=== PATIENT | female | born 1955 | race Hispanic/Latino ===

== ENCOUNTER 2019-03-22 07:30 | Day surgery (SDC) | payer MEDICARE ==
[2019-03-21 15:23] LABS: BASOPHILS % (AUTO) 0.8 % (0.0-5.0); EOSINOPHILS % (AUTO) 1.7 % (0.0-8.0); HEMATOCRIT 43.1 % (36-48); LYMPHOCYTES % (AUTO) 31.8 % (21.0-51.0); MEAN CORPUSCULAR HEMOGLOBIN 32.2 pg (27.0-33.0); MEAN CORPUSCULAR HGB CONC 35.2 g/dL (32.0-36.0); MEAN CORPUSCULAR VOLUME 91.7 fL (79-99); NEUTROPHILS % (AUTO) 58.7 % (40.0-77.0); PLATELET COUNT (AUTO) 180 K/uL (130-400); RED CELL DISTRIBUTION WIDTH 12.7 % (11.0-15.5); WHITE BLOOD COUNT (AUTO) 8.8 K/uL (4.8-10.8)
[2019-03-21 15:30] LABS: CREATININE 0.7 mg/dL (0.5-1.5); POTASSIUM 4.1 mmol/L (3.5-5.1)
[2019-03-21 15:35] LABS: PARTIAL THROMBOPLASTIN TIME 27.1 SEC (26.3-35.5); PROTHROMBIN TIME 10.5 SEC (9.6-11.6)
[2019-03-21 15:45] VITALS: BP 184/83
[~2019-03-22] VITALS: Ht 157.5 cm; Wt 66.9 kg
[2019-03-22] VITALS (14 sets, daily range): BP systolic 128–169; BP diastolic 74–88
[~2019-03-22 07:30] MED LIST: ASPI-555 PO; ATOR20TA65 PO; CLOP75TA14 PO; INSU100V12 SQ; LISI10TA7 PO; METF-444 PO
[2019-03-22] MEDS ORDERED: SODIUM CHLORIDE 0.9% 1000ML 1,000 ML IV ONE (07:33)
[2019-03-22] MEDS ORDERED: FENTANYL CITRATE PF 50 MCG/1 ML 2ML VIAL ONE (11:48)
[2019-03-22] MEDS ORDERED: LIDOCAINE HCL 2% VISCOUS 15 ML UDCUP ONE (11:48)
[2019-03-22] MEDS ORDERED: MIDAZOLAM HCL 1 MG/ML 2ML VIAL ONE (11:49)
[2019-03-22] MEDS ORDERED: FENTANYL CITRATE PF 50 MCG/1 ML 2ML VIAL IVP ONE (12:00)
[2019-03-22] MEDS ORDERED: MIDAZOLAM HCL 1 MG/ML 2ML VIAL IVP ONE (12:00)
--- NOTE | 2019-03-22 12:39 | NUR ---
NORBERT TIME OUT FOR NORBERT PROCEDURE DONE AT 1156, DR. Rigoberto GUNTER AT BEDSIDE PERFORMED NORBERT PROCEDURE WITH Luan [employer], -FIRST MEDICATION FOR SEDATION GIVEN AT 1158- VERSED 2MG IV, FENTANYL 25MCG IV -2ND MEDICATION FOR SEDATION GIVEN AT 1200-VERSED 2MG IV, FENTANYL 25MCG IV - NORBERT PROCEDURE STARTED AT 1201, BUBBLE STUDY DONE AT 1208, NORBERT COMPLETED AT 1209- RECOVERY PERIOD STARTED AT 1209, DR. Rigoberto GUNTER OUT OF ROOM AT 1209, DR. Rigoberto GUNTER SPOKE TO PATIENTS SPOUSE ABOUT NORBERT FINDINGS. AFTER 30 MIN PATIENT AWAKE AND STABLE , PT TOLERATED PROCEDURE WELL. NO ADVERSE REACTIONS NOTED ,
--- NOTE | 2019-03-22 13:50 | NUR ---
DC PT DC HOME VIA WC,NO DISTRESS NOTED. ACCOMPANIED BY SPOUSE, VS STABLE. DC INSTRUCTIONS GIVEN TO PTS SPOUSE EARLIER, INSTRUCTED TO FOLLOWUP WITH DR. Rigoberto GUNTER , TO CONTINUE HOME MEDS.
== END 2019-03-22 13:50 | disposition home or self-care (01) ==
LOC: DAH 07:30
PROVIDERS: ATTEND Internal Medicine Cardiovascular Disease
DX: I25.3 Aneurysm of heart (principal); I34.0 Nonrheumatic mitral (valve) insufficiency; E66.9 Obesity, unspecified; I10 Essential (primary) hypertension; E11.9 Type 2 diabetes mellitus without complications; E78.5 Hyperlipidemia, unspecified; Z88.0 Allergy status to penicillin; Z79.82 Long term (current) use of aspirin; Z79.899 Other long term (current) drug therapy; Z87.891 Personal history of nicotine dependence; Z82.49 Family history of ischemic heart disease and other diseases of the circulatory system
CPT/HCPCS: 36415; 80048; 82948; 85025; 85610; 85730; 93312; 93325; A4606; J2250; J3010; J7030; 93313; 99152

== ENCOUNTER → 2024-04-06 | Outpatient (CLI) | payer MEDICARE ==
[~2024-04-06] MED LIST changes: -ASPI-555 PO; +ASPI-556 PO; +CLOP-31 PO; -CLOP75TA14 PO; +LISI10TA24 PO; -LISI10TA7 PO
[2024-04-06 16:48] LABS: CREATININE 0.6 mg/dL (0.5-1.0); POTASSIUM 4.1 mmol/L (3.5-5.1)
== END | disposition home or self-care (01) ==
LOC: LAB 14:14
PROVIDERS: ATTEND Physician Assistant
DX: I10 Essential (primary) hypertension (principal)
CPT/HCPCS: 36415; 80048

== ENCOUNTER → 2024-04-12 | Outpatient (CLI) | payer MEDICARE ==
[~2024-04-12] MED LIST changes: +IOHEXOL 350 MG/ML 100ML INFUS..BTL IV ONE; +METOPROLOL TARTRATE 1 MG/ML 5ML VIAL IV ONE
== END | disposition home or self-care (01) ==
LOC: RAH 11:13
PROVIDERS: ATTEND Physician Assistant
DX: Z13.6 Encounter for screening for cardiovascular disorders (principal); E11.9 Type 2 diabetes mellitus without complications
CPT/HCPCS: 75574; J3490; Q9967